=== PATIENT | female | born 1995 | race Caucasian/White ===

== ENCOUNTER 2017-07-14 15:43 | Emergency (ER) | payer OTHER ==
[~2017-07-14] VITALS: Ht 162.6 cm; Wt 80.0 kg
[2017-07-14 15:55] VITALS: BP 119/76; PULSE 80; RESP 16; TEMP 98.3; O2SAT 99
[2017-07-14] MEDS ORDERED: ZOLO100T PO (18:36)
[2017-07-14] MEDS ORDERED: BUSP15TA PO (18:36)
[2017-07-14] MEDS ORDERED: LAMO100 PO (18:36)
[2017-07-14] MEDS ORDERED: PANTOPRAZOLE SOD 20 MG DELAYED RELEASE TAB PO ONE (18:45)
[2017-07-14] MEDS: SUCRALFATE 1 GM TAB PO ONE ×2 (18:45→20:08)
[2017-07-14 19:00] LABS: AUTOMATED NEUTROPHIL # 6.9 TH/MM3 (1.8-7.7); BASOPHIL % 0.2 % (0.0-2.0); EOSINOPHIL # 0.1 TH/MM3 (0-0.4); HEMATOCRIT 39.9 % (35.0-46.0); HEMOGLOBIN 13.3 GM/DL (11.6-15.3); LYMPH % 27.4 % (9.0-44.0); LYMPHOCYTE # 2.9 TH/MM3 (1.0-4.8); MEAN CELL VOLUME 83.3 FL (80.0-100.0); MEAN CORPUSCULAR HEMOGLOBIN 27.7 PG (27.0-34.0); MEAN CORPUSCULAR HGB CONC 33.2 % (32.0-36.0); MEAN PLATELET VOLUME 8.4 FL (7.0-11.0); MONOCYTE # 0.7 TH/MM3 (0-0.9); NEUT % 64.4 % (16.0-70.0); PLATELET COUNT 288 TH/MM3 (150-450); RED BLOOD COUNT 4.79 MIL/MM3 (4.00-5.30); RED CELL DISTRIBUTION WIDTH 14.6 % (11.6-17.2); WHITE BLOOD COUNT 10.7 TH/MM3 (4.0-11.0)
--- NOTE | 2017-07-14 19:00 | PD ---
HPI Chief Complaint: GI Complaint Time Seen by Provider: 18:24 Travel History International Travel<30 days: No Contact w/Intl Traveler<30days: No Traveled to known affect area: No History of Present Illness HPI Is a 22-year-old woman presents emerged from with epigastric pain nausea vomiting ongoing for the past several days. She states symptoms are week or so ago. She was seen at urgent care. They put her on Zantac. This did not really help. She had worsening pending and yesterday and today. Some nausea and vomiting with that. Review of systems positive for some fevers and chills. History of . No other surgeries. No NSAIDs. Alcohol several times a week. History Past Medical History Medical History: Denies Significant Hx LMP: 3 weeks ago Social History Alcohol Use: Yes Tobacco Use: Yes Allergies-Medications (Allergen,Severity, Reaction): Coded Allergies: acetaminophen (Verified Allergy, Severe, 07/14/17) oxycodone (Verified Allergy, Severe, 07/14/17) No Known Drug Allergies (Verified Allergy, Unknown, 07/14/17) Reported Meds & Prescriptions Reported Meds & Active Scripts Active Reported Buspirone (Buspirone HCl) 15 Mg Tab 15 Mg PO TID Lamictal (Lamotrigine) 100 Mg Tab 100 Mg PO DAILY Zoloft (Sertraline HCl) 100 Mg Tab 100 Mg PO DAILY Review of Systems Except as stated in HPI: all other systems reviewed are Neg Physical Exam Narrative GENERAL: A 22-year-old woman well-appearing, no acute distress. SKIN: Focused skin assessment warm/dry. HEAD: Atraumatic. Normocephalic. EYES: Pupils equal and round. No scleral icterus. No injection or drainage. ENT: No nasal bleeding or discharge. Mucous membranes pink and moist. NECK: Trachea midline. No JVD. CARDIOVASCULAR: Regular rate and rhythm. No murmur appreciated. RESPIRATORY: No accessory muscle use. Clear to auscultation. Breath sounds equal bilaterally. GASTROINTESTINAL: Abdomen soft, non-tender, nondistended. Hepatic and splenic margins not palpable. MUSCULOSKELETAL: No obvious deformities. No clubbing. No cyanosis. No edema. NEUROLOGICAL: Awake and alert. No obvious cranial nerve deficits. Motor grossly within normal limits. Normal speech. PSYCHIATRIC: Appropriate mood and affect; insight and judgment normal. Data Data Last Documented VS Vital Signs Date Time Temp Pulse Resp B/P (MAP) Pulse Ox O2 Delivery O2 Flow Rate FiO2 07/14/17 18:44 18 07/14/17 15:55 98.3 80 119/76 (90) 99 Orders Orders Complete Blood Count With Diff (07/14/17 18:33) Comprehensive Metabolic Panel (07/14/17 18:33) Lipase (07/14/17 18:33) Beta Hcg (Quant/Titer) (07/14/17 18:33) Pantoprazole (Protonix) (07/14/17 18:45) Sucralfate (Carafate) (07/14/17 18:45) Labs Laboratory Tests Test 07/14/17 18:42 White Blood Count 10.7 TH/MM3 Red Blood Count 4.79 MIL/MM3 Hemoglobin 13.3 GM/DL Hematocrit 39.9 % Mean Corpuscular Volume 83.3 FL Mean Corpuscular Hemoglobin 27.7 PG Mean Corpuscular Hemoglobin Concent 33.2 % Red Cell Distribution Width 14.6 % Platelet Count 288 TH/MM3 Mean Platelet Volume 8.4 FL Neutrophils (%) (Auto) 64.4 % Lymphocytes (%) (Auto) 27.4 % Monocytes (%) (Auto) 7.0 % Eosinophils (%) (Auto) 1.0 % Basophils (%) (Auto) 0.2 % Neutrophils # (Auto) 6.9 TH/MM3 Lymphocytes # (Auto) 2.9 TH/MM3 Monocytes # (Auto) 0.7 TH/MM3 Eosinophils # (Auto) 0.1 TH/MM3 Basophils # (Auto) 0.0 TH/MM3 CBC Comment DIFF FINAL Differential Comment Blood Urea Nitrogen 10 MG/DL Creatinine 0.84 MG/DL Random Glucose 89 MG/DL Total Protein 8.3 GM/DL Albumin 3.9 GM/DL Calcium Level 8.9 MG/DL Alkaline Phosphatase 88 U/L Aspartate Amino Transf (AST/SGOT) 43 U/L Alanine Aminotransferase (ALT/SGPT) 60 U/L Total Bilirubin 0.6 MG/DL Sodium Level 138 MEQ/L Potassium Level 4.1 MEQ/L Chloride Level 109 MEQ/L Carbon Dioxide Level 20.0 MEQ/L Anion Gap 9 MEQ/L Estimat Glomerular Filtration Rate 85 ML/MIN Lipase 87 U/L Human Chorionic Gonadotropin, Quant LESS THAN 1 MIU/ML MDM Medical Decision Making Medical Screen Exam Complete: Yes Emergency Medical Condition: Yes Interpretation(s) LABS: CBC unremarkable. CMP remarkable for elevated AST and ALT Lipase normal HCG negative LABS CBC unremarkable. CMP unremarkable. HCG negative Lipase normal Differential Diagnosis Gastritis, pancreatitis, cholecystitis, other Narrative Course Medical decision making Is a well 22-year-old woman who presents emerged department epigastric abdominal pain. Seems like gastritis. She really has a benign abdominal exam did not see any evidence of cholecystitis. Will check labs, will change to PPI and sucralfate. Diagnosis Primary Impression: Gastritis Med/Other Pt SpecificInfo: Prescription(s) given Scripts Omeprazole (Omeprazole) 40 Mg Cap 40 MG PO DAILY, #30 CAP 0 Refills Prov: Josse Nails MD 07/14/17 Sucralfate (Sucralfate) 1 Gram Tab 1 GM PO QID for Duodenal ulcer, #120 TAB 0 Refills on empty stomach Prov: Josse Nails MD 07/14/17 Disposition: 01 DISCHARGE HOME Condition: Stable Josse Nails MD Jul 14, 2017 19:00
[2017-07-14 19:15] LABS: ALT (GPT) 60 U/L (10-53)
[2017-07-14 19:19] LABS: ALKALINE PHOSPHATASE 88 U/L (45-117); TOTAL BILIRUBIN ADULT 0.6 MG/DL (0.2-1.0); TOTAL PROTEIN 8.3 GM/DL (6.4-8.2)
[2017-07-14 19:25] LABS: ALBUMIN 3.9 GM/DL (3.4-5.0); AST (GOT) 43 U/L (15-37); BLOOD UREA NITROGEN 10 MG/DL (7-18); CALCIUM 8.9 MG/DL (8.5-10.1); CHLORIDE 109 MEQ/L (98-107); CREATININE 0.84 MG/DL (0.50-1.00); GLOMERULAR FILTRATION RATE 85 ML/MIN (>89); GLUCOSE,RANDOM 89 MG/DL (74-106); SODIUM (NA) 138 MEQ/L (136-145)
[2017-07-14] MEDS ORDERED: SUCR1TAB PO (19:44)
[2017-07-14] MEDS ORDERED: OMEP40CA2 PO (19:44)
== END 2017-07-14 20:27 | disposition home or self-care (01) ==
LOC: NEPE 15:43
DX: K29.70 Gastritis, unspecified, without bleeding (principal); Z72.0 Tobacco use
CPT/HCPCS: 80053; 83690; 84702; 85025; 99283